=== PATIENT | male | born 1975 | race Caucasian/White ===

== ENCOUNTER 2021-06-10 09:30 | Day surgery (SDC) | payer OTHER ==
--- NOTE | 2021-06-08 17:01 | EKG ---
Test Date: 2021-06-07 Test Time: 13:05:04 Editing Internship: MIGUEL A MEASUREMENT RESULTS: Intervals: Rate: 65 AL: 148 QRSD: 82 QT: 410 QTc: 426 [place]: P: 25 AL: 148 QRS: 31 T: 33 INTERPRETIVE STATEMENTS: Normal sinus rhythm Normal ECG Compared to ECG 06/15/2015 14:59:20 T-wave abnormality no longer present Electronically Signed On 06-08-21 16:57:18 JUNIOR ACCOUNTING CLERK by Chavez Alegre
[2021-06-10] MEDS ORDERED: Ringers Lactate 1,000 ML IV ONE (09:37)
[2021-06-10] MEDS ORDERED: OXYMETAZOLINE HCL 0.05% 15ML NAS ONE ×5 (09:50→11:30)
[2021-06-10] MEDS ORDERED: LIDOCAINE 1% W/EPI 1:100,000 10 ML VIAL ONE (09:54)
[2021-06-10] MEDS ORDERED: NA CHLORIDE 0.9% 0 ML ONE ×2 (09:54→11:30)
[2021-06-10] MEDS ORDERED: EPINEPHRINE/PF 1 MG/ML AMP ONE (09:54)
[2021-06-10] MEDS ORDERED: CELECOXIB 100 MG CAPSULE ONE (10:03)
[2021-06-10] MEDS ORDERED: ACETAMINOPHEN 500 MG TAB ONE (10:03)
[2021-06-10] MEDS ORDERED: propofoL 200 MG/20 ML VIAL IV ONE (11:06)
[2021-06-10] MEDS ORDERED: LIDOCAINE 1% MPF 5 ML VIAL ONE (11:06)
[2021-06-10] MEDS ORDERED: FENTANYL CITR 250 MCG/5 ML ONE (11:06)
[2021-06-10] MEDS ORDERED: dexAMETHasone 10 MG/ML VIAL ONE (11:06)
[2021-06-10] MEDS ORDERED: MIDAZOLAM HCL 2 MG/2 ML INJ ONE (11:06)
[2021-06-10] MEDS ORDERED: ROCURONIUM 50 MG/5 ML VIAL IV ONE (11:07)
[2021-06-10] MEDS ORDERED: ONDANSETRON 4 MG/2 ML VIAL ONE (11:07)
[2021-06-10] MEDS ORDERED: LIDOCAINE 1% W/EPI 1:100,000 MDV 20 ML VIAL ONE (11:30)
[2021-06-10] MEDS ORDERED: GLYCOPYRROLATE 0.2 MG/ML SYR ONE (13:16)
[2021-06-10] MEDS ORDERED: NEOSTIGMINE 1 MG/ML -5 ML ONE (13:16)
--- NOTE | 2021-06-10 14:25 | P.BOP ---
Preoperative diagnosis: CRS Postoperative diagnosis: same Primary procedure: NE with B ethmoid and frontal Assistant Plant Control Operator: NONE,NONE Estimated blood loss: 50ml Specimen: sinus/ethmoid fragments Anesthesia: General Complications: None Implants: B FR Propel contour, B ethmoid Propel mini, B ethmoid Xerogel Transferred to: Recovery Room Condition: Good
[2021-06-10] MEDS ORDERED: TRAMADOL HCL 50 MG TAB ONE (14:31)
[2021-06-10 15:11] VITALS: BP 119/85; TEMP 97.2; O2SAT 99
--- NOTE | 2021-06-12 13:36 | OP ---
Date of Procedure: 06/10/2021 Surgeon: Elizabeth Johnson MD Java Tech Lead: None. Preoperative Diagnosis: Chronic ethmoid and frontal sinusitis. Postoperative Diagnosis: Chronic ethmoid and frontal sinusitis. Procedure: Nasal endoscopy with bilateral ethmoidectomy and frontal sinusotomy with use of image jayce dance navigation. Complications: None. Estimated Blood Loss: 50 mL. Iv Fluids: As recorded by anesthesia team. Specimen: Sinus and ethmoid fragments. Implants: Bilateral Propel Contour to the frontal recess and bilateral Propel mini to the ethmoid wi th bilateral Xerogel. Indication For Procedure: Mr. Carrasco presented to the [facility] and was treated with maximal medical therapy. Follow up for his chronic sinusitis and headache followed by post treatment CT imaging of t he sinuses, which demonstrated opacification within the ethmoid sinuses, and obstruction of the front al recess. The risks, benefits, and alternatives to the procedure were discussed with the patient, w ho agreed to proceed. Description Of Procedure: The patient was brought to the operating room. He was placed under genera l anesthesia via oral endotracheal tube. The head of bed was turned 90 degrees. The nasal hairs wer e trimmed and the nasal cavity was packed with Afrin-soaked pledgets. The preoperative CT scan is lo aded into the As It Is sinus navigation system and registration is performed in accordance with pharmacy tech customer service's instructions. The patient was then draped in a standard fashion for sinus surgery. The nasal pledgets are removed and a 0-degree endoscope was used to perform a nasal endoscopy. The p recision pointer navigation tool was used to visualize and confirm accuracy. Likely due to the prese nce of a nasal mask during the scan, the nasal tip was distorted and accuracy was questionable in the anterior to posterior direction. The registration was repeated with tracings focused on the forehea d and bony pyramid and inferior orbital rims. After reregistration, the precision pointer was again used to navigate and confirm accuracy, which was felt to be significantly improved. [id number] m atching for accuracy was performed at the base of the columella, the radix, the inferior turbinate, t he head of the middle turbinate, and the nasopharynx. The 0-degree endoscope was then used to obtain preoperative images of the nasal cavity. Overall, there was minimal inflammation noted, no active p us, and no polyps. The uncinate process was removed using a backbiter and 90-degree [place]. The ethmoid bulla was then entered using a curette and bony fragments along with inflamed and polypoid sw elling of the mucosa was removed using straight 45 and 90-degree [place]. Dissection was carried o ut through the ethmoid cells, intermittently packing with Afrin-soaked pledgets and using the precisi on pointer to help guide dissection. A similar procedure was performed on both the right and the lef t side. The 70-degree endoscope was then used for visualization of the anterior skull base and front al recess area. The front to back and [id number] Giraffe forceps were used to remove bony partitio ns within the frontal recess and the precision pointer was curved into a slight frontal bend and used to confirm entry into the frontal sinus proper. After packing with Afrin-soaked pledgets and remova l, the frontal recess was nicely visualized. Due to the polypoid swelling within the ethmoid cavity and frontal recess, a Propel Contour steroid-eluting stent was placed within the bilateral frontal re cess under endoscopic guidance. A Propel mini was then placed within the ethmoid cavity bilaterally. There was mild oozing, which was slightly worse on the left side. A Xerogel dissolvable nasal dres sing was placed within the bilateral nasal cavity and soaked with saline. Once in situ, further exam ination revealed no additional significant bleeding or oozing. The procedure was concluded and the p atient was returned to care of anesthesia for awakening and extubation in the operating room, which p roceeded without difficulty. Complications: None. Disposition: The patient will be discharged home later today in the care of the family and follow up with Dr. Johnson about 10 days for debridement and evaluation of healing. Outpatient prescription for tramadol and Duricef will be sent to the patient's pharmacy of choice. EDUIN/JAILYN Voice ID: [id number] Report ID: [id number]
== END 2021-06-10 14:50 | disposition home or self-care (01) ==
LOC: OR 09:30
PROVIDERS: ATTEND Otolaryngology
PROC: 09TU8ZZ Resection of Right Ethmoid Sinus, Via Natural or Artificial Opening Endoscopic (ICD-10-PCS; 2021-06-10)
PROC: 09BT8ZZ Excision of Left Frontal Sinus, Via Natural or Artificial Opening Endoscopic (ICD-10-PCS; 2021-06-10)
PROC: 09BS8ZZ Excision of Right Frontal Sinus, Via Natural or Artificial Opening Endoscopic (ICD-10-PCS; 2021-06-10)
PROC: 09TV8ZZ Resection of Left Ethmoid Sinus, Via Natural or Artificial Opening Endoscopic (ICD-10-PCS; principal; 2021-06-10 11:45)
DX: G50.1 Atypical facial pain (principal); J32.2 Chronic ethmoidal sinusitis; R51.9 Headache, unspecified; F10.99 Alcohol use, unspecified with unspecified alcohol-induced disorder; Z20.822 Contact with and (suspected) exposure to COVID-19
CPT/HCPCS: 93005; 88305; 88311; 31255; 31276; U0002; J2704; J2250; J3010; J1100; J2710; J7120; J2405; J0171; J7040